=== PATIENT | female | born 1980 | race Caucasian/White ===

== ENCOUNTER 2016-07-04 18:50 | Inpatient (IN) | payer OTHER ==
--- NOTE | ~2016-07-04 | EKG ---
PATIENT: RICO MULLIGAN UNIT #: [id number] Ventricular Rate: 127 BPM Atrial Rate: 127 BPM P-R Interval: 198 ms QRS Duration: 76 ms Q-T Interval: 252 ms QTC Calculation(Bezet): 366 ms P [place]: 68 degrees Calculated R [place]: 36 degrees Calculated T [place]: -175 degrees Diagnosis Line: Sinus tachycardia Diagnosis Line: Possible Left atrial enlargement Diagnosis Line: Cannot rule out Anterior infarct , age Diagnosis Line: undetermined Diagnosis Line: Abnormal ECG Diagnosis Line: No previous ECGs available Diagnosis Line: Confirmed by MIN BURR MD ([id number]) on 07/06/2016 Diagnosis Line: 7:57:11 PM INTERPRETING MD: AMINAH DOVER
--- NOTE | ~2016-07-04 | PN ---
Unit #: [id number] #: [id number] Patient: RICO MULLIGAN [id number] [facility] [address] [place] [address] [id number] I MR#: [id number] NAME: RICO MULLIGAN ROOM: [facility] Age: 36 Sex: F Admission Date: 07/04/2016 : 1980 Attending Physician: Toña Gilman M.D. Admitting Physician: Toña Gilman M.D. Primary Care Physician: Andreia Primary Care Physician [facility] PROGRESS NOTES DATE 07/08/2016 DISCUSSION The patient is seen today in coverage for Dr. Gilman. She continues to have active detox symptoms today and is somewhat irritable in her mood with a congruent affect. She was alert and fully oriented with no psychosis and no suicidal ideation. ASSESSMENT Major depression, alcohol dependence. PLAN We will continue with the detox protocol and monitor for changes. Dictated by... Naeem Cabrales M.D. SURESH/shilo TD: 07/11/2016 08:44 JOB #: [id number] [facility] PROGRESS NOTES Page 1 of 1 X Naeem Cabrales MD X PROGRESS NOTE
--- NOTE | ~2016-07-04 | CO ---
Unit #: [id number] #: [id number] Patient: RICO MULLIGAN [id number] [place] [address] [id number] I MR#: [id number] NAME: RICO MULLIGAN ROOM: [facility] Age: 36 Sex: F Admission Date: 07/04/2016 : 1980 Attending Physician: Toña Gilman M.D. Primary Care Physician: Primary Care Physician No Consultation Date: 07/10/2016 CONSULTATION REPORT SUBJECTIVE Rico is a 35-year-old who reported to nursing staff that she saw blood in her bowel movement. She does have a history of peptic ulcer disease, esophageal varices, and alcohol abuse. She denies any hematemesis. She has been maintained on Protonix 40 mg b.i.d. and Carafate 1 g t.i.d. On admission, H/H were 12.9/39.8. JUAN ANTONIO Sims understands that she is to follow up with her PCP at discharge. She further understands that this could be a hemorrhoid, but possibility of lower intestinal pathology needs to be ruled out. Dictated by... Radha Fuentes P.A.-C. for Wali Burnett/philomena TD: 07/13/2016 02:16 JOB #: [id number] CONSULTATION REPORT Page 1 of 1 X Radha Fuentes CONSULTATION REPORT
--- NOTE | ~2016-07-04 | PA ---
Unit #: [id number] #: [id number] Patient: [facility]ULLIGAN [id number] [facility] [address] [place] [address] [id number] I MR#: [id number] NAME: RICO MULLIGAN ROOM: [facility] Age: 36 Sex: F Admission Date: 07/04/2016 : 1980 Date of Assessment: 07/05/2016 Attending Physician: Toña Gilman M.D. Admitting Physician: Toña Gilman M.D. PSYCHIATRIC ASSESSMENT DATE OF SERVICE 07/05/2016. IDENTIFYING DATA Ms. Mulligan is a 35-year-old white female, who is a resident of [place], [place], and was self-referred to the hospital on a voluntary treatment basis. CHIEF COMPLAINT "I'm just really in bad shape." HISTORY OF PRESENT ILLNESS Ms. 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 [employer] and she stated that she has been talked to by her boss because of her drinking and she has been unable to stay sober and has been drinking regularly and heavily and has had significant consequences and does report increasing depression, anxiety, irritability, restlessness, feelings of hopelessness and helplessness, and that she has been having thoughts of wanting to , "I didn't like myself." The patient said that she would cut her wrist and also stated that she does not want to wake up and reports having thoughts of passive suicidal ideations in the past 3 days and "I just feel I'm going to kill somebody." The patient denies any homicidal thoughts and does report increasing depression, anxiety, irritability, restlessness, feelings of hopelessness and helplessness, and suicidal thoughts. SUBSTANCE ABUSE HISTORY The patient reports history of alcohol dependence and reports that she currently has been drinking two-fifth of vodka a day and denies any other drug abuse. PAST PSYCHIATRIC HISTORY The patient has had history of inpatient chemical dependency treatment at [facility] several times and review of the medical records indicate that she has been diagnosed and treated for mood disorder and supposed to be on Seroquel, Neurontin, and Vistaril, though it is not clear if she has been taking the medications regularly as she has been drinking and has not been able to show a therapeutic response to medications. PAST MEDICAL HISTORY Unit #: [id number] #: [id number] Patient: RICO MULLIGAN Gastroesophageal reflux disease, irritable bowel syndrome. ALLERGIES Penicillin, ketorolac, Toradol. PERSONAL AND SOCIAL HISTORY A 35-year-old white female, who reports that she is and lives at home with her boyfriend and is currently employed and reports poor social support system. MENTAL STATUS EXAMINATION Young white female who was casually dressed with fair personal hygiene, appears to be in no acute distress or discomfort. She was awake and alert on interaction with intact orientation to time, place, and person. Her mood was anxious and depressed with a congruent affect. Her speech was slow and restricted in content. Her thought processes were disorganized with some looseness of associations and suicidal ideations. Her insight and judgment remain significantly impaired. DIAGNOSTIC IMPRESSION Psychiatric: Major depressive disorder, recurrent, moderate, without psychotic features; alcohol dependence, moderate and acute withdrawal. Medical: Irritable bowel syndrome, gastroesophageal reflux disease. Stressors: Moderate psychosocial stressors. TREATMENT PLAN 1. The patient has presented with history of substance abuse and mood disorder, and has been decompensating and will need inpatient hospitalization for detoxification, safety, and stabilization. We will start her back on her home medications and we will adjust the medications and monitor response. 2. Supportive therapy was provided to the patient. 3. Safe, structured, and nourishing environment will be provided. ESTIMATED LENGTH OF STAY 5 to 7 days. ABILITY TO HELP SELF Limited. WILLINGNESS TO HELP SELF The patient appears to be willing to help self. STRENGTHS 1. Communicative. 2. Cooperative. PROBLEMS 1. Chronic dysphoric symptoms. 2. Chronic chemical dependency. 3. Poor social support system. DISCHARGE CRITERIA This will be contingent upon the patient's ability to go through detox without having any significant withdrawal symptoms as well as her ability to stay safe to herself, particularly after discharge from the hospital. Unit #: [id number] #: [id number] Patient: RICO MULLIGAN Dictated by... Toña Gilman M.D. HECTOR/philomena TD: 07/05/2016 07:11 JOB #: [id number] PSYCHIATRIC ASSESSMENT Page 1 of 1 X Toña Gilman MD PSYCHIATRIC ASSESSMENT
--- NOTE | ~2016-07-04 | PN ---
Unit #: [id number] #: [id number] Patient: RICO MULLIGAN [id number] [facility] [address] [place] [address] [id number] I MR#: [id number] NAME: RICO MULLIGAN ROOM: [facility] Age: 36 Sex: F Admission Date: 07/04/2016 : 1980 Attending Physician: Toña Gilman M.D. Admitting Physician: Toña Gilman M.D. Primary Care Physician: Primary Care Physician Andreia SHARMA PROGRESS NOTES DATE 07/06/2016 DISCUSSION Ms. Mulligan is a 36-year-old white female who was seen today and chart was reviewed and case was discussed with the staff. She has been anxious, withdrawn and rather seclusive to herself. Meanwhile, she has been taking medications and tolerating them fairly well with no reported side effects. MENTAL STATUS EXAMINATION Young white female who was casually dressed with fair personal hygiene and appears to be in no acute distress or discomfort. She was awake and alert on interaction with intact orientation. Her mood was anxious and depressed with congruent affect. Her speech is slow and restricted in content. Her insight and judgement remains significantly impaired. TREATMENT PLAN 1. Will continue on current medications and treatment protocol. Will monitor her response to the medications and make further adjustments as needed. 2. Will continue to follow up. Dictated by... Wali Guardado/fernanda TD: 07/08/2016 20:53 JOB #: [id number] Unit #: [id number] #: [id number] Patient: RICO MULLIGAN PROGRESS NOTES Page 1 of 1 X Toña Gilman MD PROGRESS NOTE
--- NOTE | ~2016-07-04 | CO ---
Unit #: [id number] #: [id number] Patient: RICO MULLIGAN [id number] [place] [address] [id number] I MR#: [id number] NAME: RICO MULLIGAN ROOM: [facility] Age: 36 Sex: F Admission Date: 07/04/2016 : 1980 Attending Physician: Toña Gilman M.D. Primary Care Physician: Primary Care Physician No Consultation Date: 07/05/2016 CONSULTATION REPORT SUBJECTIVE Rico is a 36-year-old who reportedly had an "abnormal EKG." We have been asked to assess and give recommendations. The patient has no complaints of chest pain, irregular heart beats, or shortness of breath. OBJECTIVE EKG shows sinus tachycardia without acute changes. ASSESSMENT Sinus tachycardia. She is detoxing from alcohol. PLAN 1. Reassurance. 2. Continue detox to include adequate hydration. Dictated by... Kimberly JonesAMorro-Nickie. for Wali Burnett/philomena TD: 07/07/2016 05:59 JOB #: [id number] CONSULTATION REPORT Page 1 of 1 X Radha Fuentes CONSULTATION REPORT
--- NOTE | ~2016-07-04 | DS ---
Unit #: [id number] #: [id number] Patient: [facility]ICO [facility]ULLIGAN [id number] [facility] [address] [place] [address] [id number] I MR#: [id number] NAME: RICO MULLIGAN ROOM: [facility] Age: 36 Sex: F Admission Date: 07/04/2016 : 1980 Discharge Date: 07/12/2016 Attending Physician: Toña Gilman M.D. Primary Care Physician: Primary Care Physician No DISCHARGE SUMMARY IDENTIFYING DATA Ms. Mulligan is a 36-year-old white female, who is known to us from previous encounter, and was self-referred to the hospital. DISCHARGE DIAGNOSES Psychiatric: Alcohol dependence, moderate and acute withdrawals; bipolar disorder, most recent episode depressed, recurrent, moderate, without psychotic features. Medical: Hypertension. Stressors: Moderate psychosocial stressors. HISTORY OF PRESENT ILLNESS Please see initial psychiatric evaluation for details. PAST PSYCHIATRIC HISTORY Please see initial psychiatric evaluation for details. PAST MEDICAL HISTORY Please see initial psychiatric evaluation for details. HOSPITAL COURSE The patient was admitted to the adult chemical dependency unit at [facility] and was oriented to the hospital environment. Routine p.r.n. medications were initiated, and she was started back on her home medications and detox protocol was initiated as the patient was seen to be in significant distress and discomfort and was actively vomiting and with this acute detox, she was not able to do activities of daily living and has a prolonged detox; however, she was cooperative with treatment recommendations and taking the medications regularly and was tolerating them fairly well and was able to show a decent therapeutic response and was able to come out of the detox without any complications and was willing to continue treatment on an outpatient basis and as such, it was decided that she will be discharged home and will continue treatment on an outpatient basis. DISCHARGE CONDITION Stable. PROGNOSIS Fair. Unit #: [id number] #: [id number] Patient: RICO MULLIGAN Dictated by... Wali Guardado/valdezl TD: 08/09/2016 01:51 JOB #: [id number] DISCHARGE SUMMARY Page 1 of 1 X Toña Gilman MD DISCHARGE SUMMARY
--- NOTE | ~2016-07-04 | PN ---
Unit #: [id number] #: [id number] Patient: RICO MULLIGAN [id number] [facility] [address] [place] [address] [id number] I MR#: [id number] NAME: RICO MULLIGAN ROOM: [facility] Age: 36 Sex: F Admission Date: 07/04/2016 : 1980 Attending Physician: Toña Gilman M.D. Admitting Physician: Toña Gilman M.D. Primary Care Physician: Primary Care Physician Andreia SHARMA PROGRESS NOTES DATE 07/12/2016 DISCUSSION Ms. Mulligan is a 36-year-old white female who was seen today and chart was reviewed and case was discussed with the staff. She has been anxious, withdrawn though she reported that she is feeling somewhat better. Meanwhile, she has been taking the medications and tolerating them fairly well with no reported side effects. MENTAL STATUS EXAMINATION Young white female who was casually dressed with fair personal hygiene, appears to be in no acute distress or discomfort. She was awake and alert on interaction with intact orientation. Her mood was anxious with congruent affect. She denies any suicidal or homicidal ideations. Her insight and judgement remains slightly impaired. TREATMENT PLAN 1. We will continue her on her current medications and treatment protocol. We will monitor her response and make further adjustments as needed. 2. We will continue to follow up. Dictated by... Wali Guardado/lavinia TD: 07/13/2016 04:25 JOB #: [id number] Unit #: [id number] #: [id number] Patient: RICO MULLIGAN PROGRESS NOTES Page 1 of 1 X Toña Gilman MD PROGRESS NOTE
--- NOTE | ~2016-07-04 | PN ---
Unit #: [id number] #: [id number] Patient: RICO MULLIGAN [id number] [facility] [address] [place] [address] [id number] I MR#: [id number] NAME: RICO MULLIGAN ROOM: [facility] Age: 36 Sex: F Admission Date: 07/04/2016 : 1980 Attending Physician: Toña Gilman M.D. Admitting Physician: Toña Gilman M.D. Primary Care Physician: Primary Care Physician Andreia GOLDSTEIN NOTES DATE 07/10/2016 DISCUSSION Ms. Mulligan is a 36-year-old white female who was seen today and chart was reviewed and case was discussed with the staff. She was sitting on the bed and was seen to be anxious, withdrawn, unkempt, disheveled and is in paper gown and has been having difficulty functioning and doing her personal hygiene and even putting her socks on and reports that she has been having increasing anxiety and distressed sleep and mood swings and anger and agitation and also reports that she has been vomiting and having blood in her stools and as such medical consultation will be requested. MENTAL STATUS EXAMINATION Young white female who was casually dressed with fair personal hygiene, appears to be in distress and discomfort. She was awake and alert with impaired attention and concentration. Her mood was anxious with congruent affect. Her speech was slow and goal-directed. She denies any current suicidal or homicidal ideations. Also, denies any auditory or visual hallucinations. Her insight and judgement remains significantly impaired. TREATMENT PLAN 1. We will continue her on her current medications and treatment protocol. We will monitor her response to the medication and make further adjustments as needed. 2. We will continue to follow up. Dictated by... Wali Guardado/lavinia TD: 07/16/2016 22:13 JOB #: [id number] Unit #: [id number] #: [id number] Patient: RICO MULLIGAN ANGELITA NOTES Page 1 of 1 X Toña Gilman MD X PROGRESS NOTE
--- NOTE | ~2016-07-04 | PN ---
Unit #: [id number] #: [id number] Patient: RICO MULLIGAN [id number] [facility] [address] [place] [address] [id number] I MR#: [id number] NAME: RICO MULLIGAN ROOM: [facility] Age: 36 Sex: F Admission Date: 07/04/2016 : 1980 Attending Physician: Toña Gilman M.D. Admitting Physician: Toña Gilman M.D. Primary Care Physician: Primary Care Physician Andreia GOLDSTEIN NOTES DATE OF SERVICE: 07/11/2016 SUBJECTIVE Ms. Mulligan is a 36-year-old white female, who was seen today and chart was reviewed, and case was discussed with the staff. She has been anxious, withdrawn, rather seclusive to herself. She has been cooperative with treatment recommendation and taking the medication and tolerating them fairly well with no reported side effects and did receive first dose of . MENTAL STATUS EXAMINATION Young white female, who was casually dressed with fair personal hygiene, appears to be in no acute distress or discomfort. The patient was awake and alert on interaction with intact orientation. Her mood was anxious and depressed with a congruent affect. She denies any suicidal or homicidal ideations. She denies any auditory or visual hallucinations. Her insight and judgment remain slightly impaired. TREATMENT PLAN 1. We will continue current medications and treatment protocol. We will monitor her response to medications and make further adjustments as needed. 2. We will continue to follow up. Dictated by... Wali Guardado/philomena TD: 07/11/2016 23:49 JOB #: [id number] [facility] PROGRESS NOTES Page 1 of 1 X Toña Gilman MD PROGRESS NOTE
--- NOTE | ~2016-07-04 | PN ---
Unit #: [id number] #: [id number] Patient: RICO MULLIGAN [id number] [facility] [address] [place] [address] [id number] MR#: [id number] NAME: RICO MULLIGAN ROOM: [facility] Age: 36 Sex: F Admission Date: 07/04/2016 : 1980 Attending Physician: Toña Gilman M.D. Admitting Physician: Toña Gilman M.D. Primary Care Physician: Primary Care Physician Andreia SHARMA PROGRESS NOTES DATE 07/07/2016 DISCUSSION Ms. Mulligan is a 36-year-old white female who was seen today and chart was reviewed and case was discussed with the staff. She remains anxious, withdrawn and rather seclusive to herself. Meanwhile, she has been cooperative with treatment recommendations and has been taking medications and tolerating them fairly well with no reported side effects. MENTAL STATUS EXAMINATION Young white female who was casually dressed with fair personal hygiene and appears to be in distress and discomfort. She was awake and alert with impaired attention and concentration. Her mood was anxious and depressed with congruent affect. She denies any suicidal or homicidal ideation. Her insight and judgement remains slightly impaired. TREATMENT PLAN 1. Will continue on current medications and treatment protocol and will monitor her response to the medications and make further adjustments as needed. 2. Will continue to follow up. Dictated by... Wali Guardado/fernanda TD: 07/10/2016 08:11 JOB #: [id number] Unit #: [id number] #: [id number] Patient: RICO MULLIGAN PROGRESS NOTES Page 1 of 1 X Toña Gilman MD PROGRESS NOTE
--- NOTE | ~2016-07-04 | HP ---
Unit #: [id number] #: [id number] Patient: RICO MULLIGAN [id number] [place] [address] [id number] I MR#: [id number] NAME: RICO MULLIGAN ROOM: [facility] Age: 36 Sex: F Admission Date: 07/04/2016 : 1980 Attending Physician: Toña Gilman M.D. Admitting Physician: Toña Gilman M.D. Primary Care Physician: Primary Care Physician No HISTORY AND PHYSICAL HISTORY OF PRESENT ILLNESS Rico is a 36 year old admitted to [facility] because of her continued abuse of alcohol. PAST MEDICAL HISTORY 1. Long history of alcohol abuse 2. History of PUD 3. History of esophageal varices 4. History of withdrawal seizures PAST SURGICAL HISTORY 1. Right knee 2. Cholecystectomy ALLERGIES Penicillin, Toradol. SOCIAL HISTORY She does not smoke. Drinks at least a fifth of liquor on a daily basis and denies illicit drug use. FAMILY HISTORY Medically noncontributory. REVIEW OF SYSTEMS CONSTITUTIONAL: No fever or chills. HEENT: Denies any sore throat, ear pain or runny nose. CARDIOVASCULAR: Denies chest pain, irregular heart rhythm or palpitations. CHEST: Denies shortness of breath or cough. No hemoptysis. GASTROINTESTINAL: Denies nausea, vomiting, diarrhea or chronic constipation. ENDOCRINE: Denies history of increased thirst or urination. No recent significant weight loss or gain. GENITOURINARY: Denies dysuria, frequency, or hematuria. SKIN: Denies any rashes. HEMATOLOGIC: Denies history of increased bleeding or bruising. MUSCULOSKELETAL: Denies any hot, swollen joints. No generalized muscle pain. NEUROLOGIC: Denies problems with vision or speech. No frequent, severe headaches. No numbness, tingling or weakness in any extremities. Denies loss of bladder or bowel control. Unit #: [id number] #: [id number] Patient: RICO MULLIGAN CURRENT MEDICATIONS Detox protocol PHYSICAL EXAMINATION GENERAL: Alert, well-nourished, in no apparent distress. VITAL SIGNS: Blood pressure 152/100, heart rate 80, respirations 16, temperature 98.6. WEIGHT: 150 pounds. HEIGHT: 5'2". SKIN: Warm and dry without rash or lesion. HEENT: Normocephalic. TMs not viewed. Oral and nasal passages clear. Conjunctivae clear. Pupils equal, round and reactive to light and accommodation. Extraocular movements intact. NECK: Supple without lymphadenopathy or thyromegaly. HEART: Regular rate and rhythm without murmur. LUNGS: Clear. ABDOMEN: Soft, nontender. : Not done. EXTREMITIES: No evidence of cyanosis, clubbing or edema. Moves all extremities without focal deficit. NEUROLOGICAL: Grossly within normal limits. Cranial Nerves: II: Visual tai are intact. III, IV AND : Extraocular movements are intact. Pupils are equal, round and reactive to light. V: Facial sensation is grossly normal. VII: Facial movements and expression are normal. VIII: Auditory acuity grossly intact. IX, X: Uvula is midline. Phonation is normal. XI: Patient shrugs shoulders and turns head normally. XII: Tongue protrudes in the midline. Sensory and Motor Function: Sensory and motor sensation is grossly normal. Motor: moves all extremities well. Coordination: Gait is normal. Deep Tendon Reflexes: Intact. IMPRESSION Psychiatric admission RECOMMENDATIONS PSYCHIATRIC: Per psychiatrist. MEDICAL: I see no contraindications to participating in facility's activities. MEDICAL PROGNOSIS Good. MEDICAL CONDITION Stable. Dictated by... Radha Fuentes PMorroA.-C. for Wali Burnett/lavinia TD: 07/05/2016 22:19 Unit #: [id number] #: [id number] Patient: RICO MULLIGAN JOB #: [id number] HISTORY AND PHYSICAL Page 1 of 1 X Radha Fuentes HISTORY AND PHYSICAL
[2016-07-06 12:31] LABS: BASOPHIL# 0.1 X10e3 (0-0.3); BASOPHIL% 0.7 % (0-2.5); EOSINOPHIL# 0.1 X10e3 (0-0.7); HEMATOCRIT 39.8 % (35.0-45.0); HEMOGLOBIN 12.9 gm/dL (12.0-16.0); LYMPHOCYTE# 2.3 X10e3 (1.0-3.5); LYMPHOCYTE% 21.9 % (17.0-45.0); MEAN CELL VOLUME 75.6 FL (83-96); MEAN CORPUSCULAR HEMOGLOBIN 24.4 PG (28-34); MEAN CORPUSCULAR HGB CONC 32.3 g/dL (30-36); MEAN PLATELET VOLUME 8.8 FL (6.5-11.5); MONOCYTE% 9.5 % (3.0-12.0); NEUTROPHIL# 6.9 X10e3 (1.5-7.1); NEUTROPHIL% 66.9 % (40-75); PLATELET COUNT 397 X10e3 (140-420); RED BLOOD COUNT 5.26 X10e (3.90-5.30); RED CELL DISTRIBUTION WIDTH 28.3 % (11.0-15.5); WHITE BLOOD COUNT 10.3 X10e3 (4.0-10.5)
[2016-07-06 12:32] LABS: DIFF IND YES
[2016-07-06 12:48] LABS: ALBUMIN SERUM 3.9 g/dL (3.5-5.0); BUN/CREATININE RATIO 23.63; CALCIUM SERUM 9.9 mg/dL (8.4-10.2); CREATININE SERUM 1.1 mg/dL (0.6-1.4); GLOM FILT RATE Estimated 63.7 mL/min (>60)
[2016-07-06 13:07] LABS: HYPOCHROMIA MOD; PLATELET ESTIMATE NORMAL (NORMAL); POIKILOCYTOSIS MOD
[2016-07-06 13:08] LABS: ELLIPTOCYTES PRESENT; MICROCYTOSIS MOD; OVALOCYTES PRESENT; SCHISTOCYTES PRESENT
[2016-07-09 10:51] LABS: URINE APPEARANCE CLEAR; URINE BILIRUBIN NEG (NEG); URINE BLOOD NEG (NEG); URINE COLOR DK YELLOW; URINE GLUCOSE NEG (NEG); URINE KETONE NEG (NEG); URINE LEUKOCYTE ESTERASE NEG (NEG); URINE NITRATE NEG (NEG); URINE PROTEIN NEG (NEG); URINE UROBILINOGEN 0.2 MG/DL (NEG)
[2016-07-09 11:06] LABS: AMPHETAMINE NEG (NEG); BARBITURATES NEG (NEG); BENZODIAZEPINES POS (NEG); COCAINE NEG (NEG); MARIJUANA NEG (NEG); OPIATES NEG (NEG); TRICYCLIC ANTIDEPRESSANTS POS (NEG); U METHADONE NEG (NEG)
== END 2016-07-12 12:23 | DRG 897 ==
LOC: P1E 18:50
PROVIDERS: Psychiatry & Neurology Psychiatry
PROC: HZ2ZZZZ Detoxification Services for Substance Abuse Treatment (ICD-10-PCS; principal; 2016-07-04)
DX: F10.239 Alcohol dependence with withdrawal, unspecified (principal); F33.1 Major depressive disorder, recurrent, moderate; K58.9 Irritable bowel syndrome, unspecified; K21.9 Gastro-esophageal reflux disease without esophagitis; Z88.0 Allergy status to penicillin; Z88.8 Allergy status to other drugs, medicaments and biological substances; R00.0 Tachycardia, unspecified
CPT/HCPCS: 80053; 80307; 81003; 85025; 86592; 93005; J2550